=== PATIENT | male | born 1960 | race Caucasian/White ===

== ENCOUNTER 2016-05-06 05:11 | Day surgery (SDC) | payer MEDICAID ==
[~2016-05-06] VITALS: Ht 185.4 cm; Wt 71.7 kg
[~2016-05-06 05:11] MED LIST: ANUSOL-HC 2.5%30 GM TOPICAL; PROAIR HFA8.5 GM INH
[2016-05-06 07:06] VITALS: BP 112/60; Ht 185.4 cm; Wt 71.7 kg
[2016-05-06] MEDS ORDERED: VALIUM5 MG PO (11:12)
[2016-05-06] MEDS ORDERED: OXYCODONE HCL5 MG PO (11:12)
[2016-05-06] MEDS ORDERED: MIRALAX17 GM PO (11:13)
--- NOTE | 2016-05-06 12:36 | OP ---
PATIENT NAME: ROMEO HARP MEDICAL RECORD: [id number] :56 LOCATION:[facility] ADMISSION DATE: SURGEON: EVELYN CONDE MD DATE OF OPERATION: 05/06/2016 SURGEON: Evelyn Conde MD PREOPERATIVE DIAGNOSES: 1. Bleeding internal hemorrhoids. 2. External hemorrhoids. 3. Anemia. 4. Screening for malignant neoplasm of colon. POSTOPERATIVE DIAGNOSES: 1. Bleeding internal hemorrhoids. 2. External hemorrhoids. 3. Anemia. 4. Screening for malignant neoplasm of colon. PROCEDURE PERFORMED: 1. Colonoscopy with hot biopsy. 2. Right anterior column hemorrhoidectomy. 3. Internal hemorrhoid banding of left lateral and right posterior internal hemorrhoid columns. ANESTHESIA: General. COMPLICATIONS: None. SPECIMENS: 1. Right anterior hemorrhoidectomy. 2. Polypectomy at 25 cm. OPERATIVE COURSE: After consent was obtained, the patient was taken to the operating room and placed in the supine position on the operating table. Next, general anesthesia was given via endotracheal intubation and after a timeout was performed that confirmed the correct patient and procedure, the patient was placed into stirrups. Digital rectal exam was performed. The patient had a grade III internal hemorrhoids on exam. Colonoscope was inserted. The colon was insufflated. The scope was advanced through to the cecum. The ileocecal valve and appendiceal orifice were identified. Approximately 25 minutes was spent on withdrawal of the scope. The patient was noted to have diverticulosis in the region of the sigmoid colon. The patient had multiple polyps at 25 cm and a polyp at 45 cm, hot biopsies were taken of the polyps at 25 cm and the polyp at 45 cm was a slightly larger. It was taken with a snare. The polyp was grasped with the net and sent for permanent pathology. In the rectum, the scope was retroflexed, large internal hemorrhoids were noted at all 3 columns. At this time, the scope was straightened and removed. The patient was ALLERGIC TO LIDOCAINE, no local anesthetic was given. The rectum was serially dilated using the [place] retractors. A formal hemorrhoidectomy was performed in the right anterior column. A 3-0 Stratafix stay suture was placed at the apex of the internal hemorrhoid. Using the Harmonic scalpel, the external and internal components of the hemorrhoid were excised. The muscle was gently dissected away using blunt dissection. The hemorrhoid was sent for permanent pathology. The excision was closed with the 3-0 Stratafix suture. Next, the bands were placed OPERATIVE REPORT [id number] ROMEO HARP on the internal hemorrhoid in the right posterior and left lateral positions. The rectum was packed with [place]. The patient will need a repeat colonoscopy in 3 years for reevaluation of polyps. TRANSINT:[id number] Voice Confirmation ID: [id number] DOCUMENT ID: [id number] EVELYN CONDE MD at 1236 CC: [id number] DICTATION DATE: 05/06/16 1121 [employer] BROKER: 05/06/16 1148 [facility] [address] [place] [address]
--- NOTE | 2016-05-06 14:18 | NUR ---
1410--PT VOIDS, IV RUBEN'Ruben KELSEY RN
--- NOTE | 2016-05-06 14:26 | NUR ---
1425--DISCHARGE INSTRUCTIONS GIVEN, PT VERBALIZES UNDERSTANDING. PT OFF UNIT VIA JONATHAN. LOW RUTLEDGE
== END 2016-05-06 14:25 | disposition home or self-care (01) ==
LOC: D.PAN 05:11 → D.OPS 08:00 → D.PAN 08:00
DX: K64.2 Third degree hemorrhoids (principal); D64.9 Anemia, unspecified; K57.30 Diverticulosis of large intestine without perforation or abscess without bleeding; K63.5 Polyp of colon